=== PATIENT | female | born 1990 | race Caucasian/White ===

== ENCOUNTER 2016-08-19 23:44 | Emergency (ER) | payer BC ==
[~2016-08-19 23:44] MED LIST: ALBUTEROL17 GM; CHERATUSSIN AC118 M1 PO; MIDRIN CAPSULE1 CAP; PROAIR HFA8.5 GM IH; PROAIR HFA8.5 GM INH; [UNRECOGNIZED DRUG - REMARK]
[2016-08-20] MEDS ORDERED: NORCO 5-325 TA1 EACH PO (00:14)
[2016-12-06] MEDS ORDERED: NORCO 5-325 TA1 EACH PO (22:34)
== END 2016-08-20 01:08 ==
LOC: EDMED 23:44
PROC: 2W3QXYZ Immobilization of Right Lower Leg using Other Device (ICD-10-PCS; principal; 2016-08-20)
DX: S93.401A Sprain of unspecified ligament of right ankle, initial encounter (principal); F17.210 Nicotine dependence, cigarettes, uncomplicated; X50.1XXA Overexertion from prolonged static or awkward postures, initial encounter